=== PATIENT | female | born 1980 | race Caucasian/White ===

== ENCOUNTER → 2016-05-15 | Outpatient (CLI) | payer BC ==
[~2016-05-15] MED LIST: DOCU-94 PO; FEXO1TAB49 PO; MULT-240 PO; SERT1TAB71 PO
== END | disposition home or self-care (01) ==
LOC: C.PAPS 16:35
PROVIDERS: ATTEND Physician Assistant
DX: Z01.419 Encounter for gynecological examination (general) (routine) without abnormal findings (principal)

== ENCOUNTER → 2016-05-26 | Outpatient (CLI) | payer BC | END | disposition home or self-care (01) | LOC: C.LAB1850 09:34 | PROVIDERS: ATTEND Physician Assistant | DX: N64.52 Nipple discharge (principal) ==

== ENCOUNTER 2016-08-07 14:25 | Emergency (ER) | payer BC ==
[2016-08-07 14:31] VITALS: TEMP 36.8; Ht 175.3 cm
[2016-08-07] MEDS ORDERED: SODIUM CHLORIDE 0.9% 1000ML 1,000 ML IV STA (15:04)
[2016-08-07] MEDS ORDERED: MoRPHine SULFATE 10 MG/ML CARP/VIAL IV STA (15:04)
[2016-08-07] MEDS ORDERED: ONDANSETRON INJ 2 MG/ML 2 ML VIAL IV STA (15:04)
[2016-08-07] MEDS ORDERED: KETOROLAC TROMETHAMINE 30 MG/ML VIAL IV STA (15:04)
[2016-08-07] MEDS ORDERED: MoRPHine SULFATE 4 MG/ML 1 ML CARP\\VIAL IV STA (15:11)
[2016-08-07 15:16] LABS: BASO % 0.2 %; BASO ABS # 0.02 K/uL (0-0.2); COMPLETE YES; EOS % 1.5 %; HEMATOCRIT 38.1 % (37-47); IG% 0.1 %; LYMPH % 28.2 %; LYMPH ABS # 2.32 K/uL (1.2-3.4); MEAN CELL VOLUME 91.6 fL (80-100); MEAN CORPUSCULAR HEMOGLOBIN 31.7 pg (25-34); MEAN CORPUSCULAR HGB CONC 34.6 g/dl (32-36); MEAN PLATELET VOLUME 10.2 fL (7.4-10.4); MONO % 8.5 %; NEUT % 61.5 %; PLATELET COUNT 250 K/uL (130-400); RED BLOOD COUNT 4.16 M/uL (4.2-5.4); WHITE BLOOD COUNT 8.24 K/uL (4.8-10.8)
[2016-08-07 15:26] LABS: ALT/SGPT 50 U/L (12-78); BLOOD UREA NITROGEN 17 mg/dl (7-18); BUN/CREATININE RATIO 18.9 (10-20); CARBON DIOXIDE 28 mmol/L (21-32); CHLORIDE 103 mmol/L (98-107); CREATININE 0.89 mg/dl (0.60-1.20); GLUCOSE 83 mg/dl (70-99); SODIUM 139 mmol/L (136-145)
[2016-08-07 15:27] LABS: CALCIUM 9.4 mg/dl (8.5-10.1)
[2016-08-07 15:34] LABS: ALKALINE PHOSPHATASE 106 U/L (45-117); AST/SGOT 37 U/L (15-37)
[2016-08-07 15:38] LABS: URINE APPEARANCE CLEAR (CLEAR); URINE BILIRUBIN NEG (NEG); URINE COLOR YELLOW; URINE EPITHELIAL CELL AUTO >30 /lpf (0-5); URINE NITRITE NEG (NEG); URINE PH 6.5 (4.5-7.5); UROBILINOGEN NEG (NEG)
[2016-08-07 15:40] LABS: MANUAL MICROSCOPIC REQUIRED? NO; REVIEW REQ? NO
[2016-08-07] MEDS ORDERED: MULT-240 PO (15:44)
[2016-08-07] MEDS ORDERED: FEXO1TAB49 PO (15:44)
[2016-08-07] MEDS ORDERED: SERT1TAB71 PO (15:44)
[2016-08-07 15:52] LABS: PREG INTERNAL NEGATIVE QC NEG CLEAR BACKGROUND; PREG INTERNAL POSITIVE QC POS CONTROL LINE
--- NOTE | 2016-08-07 16:39 | DIAGNOSTIC IMAGING REPORT ---
ABDOMEN 2VIEW W/PA CHEST RTN CLINICAL HISTORY: SUDDEN ONSET LOWER ABD PAIN pain COMPARISON STUDY: None FINDINGS: No acute process the chest. Slight basilar interstitial prominence. Increased fecal load within the colon. Nonobstructive bowel pattern overall. Intrauterine device is present. IMPRESSION: 1. Increased fecal load throughout the colon consistent with a component of fecal stasis. 2. Slight bibasilar interstitial prominence. Electronically signed by: Asa Isbell M.D. 08/07/2016 4:38 PM Dictated Date/Time: 08/07/2016 4:37 PM
[2016-08-07] MEDS: MoRPHine SULFATE 4 MG/ML 1 ML CARP\\VIAL IV PRN ×2 (17:25→19:14)
--- NOTE | 2016-08-07 18:20 | DIAGNOSTIC IMAGING REPORT ---
EXAMINATION: PELVIC ULTRASOUND CLINICAL HISTORY: PELVIC PAIN, EVAL IUD PAIN COMPARISON STUDY: None FINDINGS: The uterus measured 7.6 cm. The endometrial stripe measured 3 mm. Intrauterine device within good position. The right ovary measured poorly seen due to overlying bowel content.. The left ovary measured 2.7 cm maximum dimension read normal vascular flow.. There is no ultrasonographic evidence of ovarian torsion. It should be noted that ovarian torsion can be present with normal Doppler ultrasonographic findings. There was no evidence of pathologic free pelvic fluid. IMPRESSION: 1. Intrauterine device in good position within the central uterine canal. 2. Otherwise negative study. 3. Poor visibility of the right ovary due to overlying bowel content. Electronically signed by: Asa Isbell M.D. 08/07/2016 6:19 PM Dictated Date/Time: 08/07/2016 6:17 PM
[2016-08-07] MEDS ORDERED: DOCU-94 PO (18:26)
[2016-08-07] MEDS ORDERED: OPTIRAY 320 IV PRN (19:15)
--- NOTE | 2016-08-07 19:50 | DIAGNOSTIC IMAGING REPORT ---
ABDOMEN AND PELVIS CT WITH IV CONTRAST CT DOSE: 395.13 mGy.cm HISTORY: Pain ABDOMINAL PAIN TECHNIQUE: Multiaxial CT images of the abdomen and pelvis were performed following the use of intravenous contrast. COMPARISON STUDY: 02/09/2016 FINDINGS: Lung bases are clear. Liver spleen and pancreas enhance uniformly. Kidneys enhance uniformly and are negative for hydronephrosis. The adrenal glands are unremarkable. Moderate amount of fecal material throughout colon. The appendix is normal. There is intrauterine device within the central uterine canal. The bladder is midline. No evidence for ovarian enlargement. IMPRESSION: 1. Negative study of the abdomen and pelvis. 2. Normal appendix. 3. Nonobstructive bowel pattern. Electronically signed by: Asa Isbell M.D. 08/07/2016 7:48 PM Dictated Date/Time: 08/07/2016 7:46 PM
[2016-08-07] MEDS ORDERED: NORCO 5/325MG HOME PACK PO ONE (20:00)
--- NOTE | 2016-08-07 20:01 | EMERGENCY ROOM VISIT NOTE ---
History First contact with patient: 14:54 Chief Complaint: ABDOMINAL PAIN Stated Complaint: SEVERE ABD. PAIN Nursing Triage Summary: Randy presents with a c/c of lower midline abdominal pain with a sudden onset at 1230 this date. Patient took motrin 600 mg at 1300 without relief. Austin reports some nausea, negative urinary c/c, n egative diarrhea or constipation. negative fever/chills. Pain is reported as severe and non-radiating. History of Present Illness Patient is a 36-year-old white female with IBS-C who presents the emergency department for evaluation of lower abdominal discomfort which started acutely about 2 hours ago. Patient reports that she has been feeling well and was in her usual state of health today. She does have chronic constipation which is typically alleviated by daily use of Colace. She had 2 normal bowel movements today. She also has an IUD. She does not menstruate due to the IUD. Patient reports she felt fine and had lunch out at a local restaurant. She ran a few errands and return to work around 1300. At that time she noticed some lower pelvic cramping which she states felt like menstrual cramps. She took some ibuprofen. She states the pain steadily worsened to the point where it became sharp, stabbing and she had to curl up in a position to help alleviate the pain. She presently rates her discomfort a 10/10. She states the pain comes in waves and she has nausea with the increased pain. She denies any urinary symptoms. Bowel movements have been normal for her. She denies any vaginal discharge. No history of ovarian cysts. She states she did have an episode of pain similar to this in February 2016. She states that she had some abnormal findings on CAT scan and they observed her in the hospital and the pain resolved on its own without further intervention. Review of Systems Review of systems as per HPI. All other systems reviewed were negative. 10 systems reviewed. Past Medical/Surgical History Medical Problems: (1) Anxiety (2) IBS (irritable bowel syndrome) (3) Migraine (4) Surgical Problems: (1) H/O colonoscopy with polypectomy (2) S/p egg retrieval (3) [place] teeth extracted Electronic medical records are reviewed and summarized as above/below. See Problem List. Family History Cardiac disorder MOTHER FHx: cancer GRANDMOTHER Kidney disease Kidney stones Social History Smoking Status: Never Smoker Drug Use: none Marital Status: Housing Status: lives with family Occupation Status: employed Current/Historical Medications Scheduled Docusate Sodium (Colace), 100 MG PO DAILY Fexofenadine Hcl (Whitney Allergy), 180 MG PO DAILY Multiple Vitamins W/ Minerals (Womens One Daily), 2 TABS PO DAILY Sertraline Hcl (Zoloft), 50 MG PO DAILY Allergies Coded Allergies: No Known Allergies (Unverified , 12/17/15) Physical Exam Vital Signs Date Time Temp Pulse Resp B/P (MAP) Pulse Ox O2 Delivery O2 Flow Rate FiO2 08/07/16 20:19 76 16 103/69 97 08/07/16 18:20 84 16 92/61 98 08/07/16 16:30 84 16 96/61 99 08/07/16 14:31 36.8 114 20 114/78 95 Room Air Physical Exam CONSTITUTIONAL: Patient is a markedly uncomfortable 36-year-old white female who was awake and alert and sitting upright on the gurney with her hips and knees flexed in moderate distress due to her abdominal discomfort. EYES: Pupils equal, round, reactive to light and accommodation. EOMs intact without nystagmus. Sclera are anicteric. ENT: Tympanic membranes intact, with normal landmarks. External canals are clear. Oral and nasopharynx are clear. Mucous membranes are moist, no lesions , tongue and gums appear normal. CARDIOVASCULAR: Regular rate and rhythm, with normal S1 and S2, no murmur or gallop or rub is heard. No carotid bruits auscultated. No JVD. Peripheral pulses easy to palpable. RESPIRATORY: Breath sounds equal and clear to auscultation without wheezes, rales, or rhonchi heard. Full and equal chest expansion without accessory muscle use or retractions. GI: Bowel sounds are present. Abdomen is soft, nondistended, tender to palpation in the suprapubic region. No organomegaly. No pulsatile masses. No guarding or rebound. MUSCULOSKELETAL: Full range of motion of extremities x 4 with good strength. No cyanosis, edema, joint tenderness or swelling. No deformity. INTEGUMENTARY: No lesions or rash, normal skin turgor. NEUROLOGICAL: Alert, oriented, and cooperative. Cranial nerves, sensation and strength grossly intact. Pupils round, equal, and react to light, EOMs are full. LYMPH: No lymphadenopathy. Medical Decision & Procedures ER Provider Diagnostic Interpretation: ABDOMEN 2VIEW W/PA CHEST RTN CLINICAL HISTORY: SUDDEN ONSET LOWER ABD PAIN pain COMPARISON STUDY: None FINDINGS: No acute process the chest. Slight basilar interstitial prominence. Increased fecal load within the colon. Nonobstructive bowel pattern overall. Intrauterine device is present. IMPRESSION: 1. Increased fecal load throughout the colon consistent with a component of fecal stasis. 2. Slight bibasilar interstitial prominence. EXAMINATION: PELVIC ULTRASOUND CLINICAL HISTORY: PELVIC PAIN, EVAL IUD PAIN COMPARISON STUDY: None FINDINGS: The uterus measured 7.6 cm. The endometrial stripe measured 3 mm. Intrauterine device within good position. The right ovary measured poorly seen due to overlying bowel content.. The left ovary measured 2.7 cm maximum dimension read normal vascular flow.. There is no ultrasonographic evidence of ovarian torsion. It should be noted that ovarian torsion can be present with normal Doppler ultrasonographic findings. There was no evidence of pathologic free pelvic fluid. IMPRESSION: 1. Intrauterine device in good position within the central uterine canal. 2. Otherwise negative study. 3. Poor visibility of the right ovary due to overlying bowel content. ABDOMEN AND PELVIS CT WITH IV CONTRAST CT DOSE: 395.13 mGy.cm HISTORY: Pain ABDOMINAL PAIN TECHNIQUE: Multiaxial CT images of the abdomen and pelvis were performed following the use of intravenous contrast. COMPARISON STUDY: 02/09/2016 FINDINGS: Lung bases are clear. Liver spleen and pancreas enhance uniformly. Kidneys enhance uniformly and are negative for hydronephrosis. The adrenal glands are unremarkable. Moderate amount of fecal material throughout colon. The appendix is normal. There is intrauterine device within the central uterine canal. The bladder is midline. No evidence for ovarian enlargement. IMPRESSION: 1. Negative study of the abdomen and pelvis. 2. Normal appendix. 3. Nonobstructive bowel pattern. Laboratory Results 08/07/16 14:55 Red Blood Count 4.16, Mean Corpuscular Volume 91.6, Mean Corpuscular Hemoglobin 31.7, Mean Corpuscular Hemoglobin Concent 34.6, Mean Platelet Volume 10.2, Neutrophils (%) (Auto) 61.5, Lymphocytes (%) (Auto) 28.2, Monocytes (%) (Auto) 8.5, Eosinophils (%) (Auto) 1.5, Basophils (%) (Auto) 0.2, Neutrophils # (Auto) 5.07, Lymphocytes # (Auto) 2.32, Monocytes # (Auto) 0.70, Eosinophils # (Auto) 0.12, Basophils # (Auto) 0.02 08/07/16 14:55 Test 08/07/16 14:55 08/07/16 15:20 White Blood Count 8.24 K/uL (4.8-10.8) Red Blood Count 4.16 M/uL (4.2-5.4) Hemoglobin 13.2 g/dL (12.0-16.0) Hematocrit 38.1 % (37-47) Mean Corpuscular Volume 91.6 fL (80-100) Mean Corpuscular Hemoglobin 31.7 pg (25-34) Mean Corpuscular Hemoglobin Concent 34.6 g/dl (32-36) Platelet Count 250 K/uL (130-400) Mean Platelet Volume 10.2 fL (7.4-10.4) Neutrophils (%) (Auto) 61.5 % Lymphocytes (%) (Auto) 28.2 % Monocytes (%) (Auto) 8.5 % Eosinophils (%) (Auto) 1.5 % Basophils (%) (Auto) 0.2 % Neutrophils # (Auto) 5.07 K/uL (1.4-6.5) Lymphocytes # (Auto) 2.32 K/uL (1.2-3.4) Monocytes # (Auto) 0.70 K/uL (0.11-0.59) Eosinophils # (Auto) 0.12 K/uL (0-0.5) Basophils # (Auto) 0.02 K/uL (0-0.2) RDW Standard Deviation 42.2 fL (36.4-46.3) RDW Coefficient of Variation 12.5 % (11.5-14.5) Immature Granulocyte % (Auto) 0.1 % Immature Granulocyte # (Auto) 0.01 K/uL (0.00-0.02) Anion Gap 8.0 mmol/L (3-11) Estimated GFR () 97.3 Estimated GFR (Non- 84.0 BUN/Creatinine Ratio 18.9 (10-20) Calcium Level 9.4 mg/dl (8.5-10.1) Total Bilirubin 0.2 mg/dl (0.2-1) Aspartate Amino Transf (AST/SGOT) 37 U/L (15-37) Alanine Aminotransferase (ALT/SGPT) 50 U/L (12-78) Alkaline Phosphatase 106 U/L (45-117) Total Protein 8.5 gm/dl (6.4-8.2) Albumin 4.2 gm/dl (3.4-5.0) Globulin 4.3 gm/dl (2.5-4.0) Albumin/Globulin Ratio 1.0 (0.9-2) Lipase 218 U/L (73-393) Human Chorionic Gonadotropin, Qual NEG (NEG) Urine Color YELLOW Urine Appearance CLEAR (CLEAR) Urine pH 6.5 (4.5-7.5) Urine Specific [place] 1.010 (1.000-1.030) Urine Protein NEG (NEG) Urine Glucose (UA) NEG (NEG) Urine Ketones NEG (NEG) Urine Occult Blood NEG (NEG) Urine Nitrite NEG (NEG) Urine Bilirubin NEG (NEG) Urine Urobilinogen NEG (NEG) Urine Leukocyte Esterase TRACE (NEG) Urine WBC (Auto) 1-5 /hpf (0-5) Urine RBC (Auto) 0-4 /hpf (0-4) Urine Hyaline Casts (Auto) 1-5 /lpf (0-5) Urine Epithelial Cells (Auto) >30 /lpf (0-5) Urine Bacteria (Auto) NEG (NEG) Medications Administered Medications (Trade) Dose Ordered Sig/[place]ton Route Start Time Stop Time Status Last Admin Dose Admin Ketorolac Tromethamine (Toradol Inj) 30 mg NOW STAT IV 08/07/16 15:04 08/07/16 15:07 DC 08/07/16 15:17 30 MG Morphine Sulfate (MoRPHine SULFATE INJ) 6 mg NOW STAT IV 08/07/16 15:04 08/07/16 15:07 DC 08/07/16 15:18 6 MG Ondansetron HCl (Zofran Inj) 4 mg NOW STAT IV 08/07/16 15:04 08/07/16 15:07 DC 08/07/16 15:17 4 MG Sodium Chloride 1,000 ml @ 999 mls/hr Q1H1M STAT IV 08/07/16 15:04 08/07/16 16:04 DC 08/07/16 15:08 999 MLS/HR Morphine Sulfate (MoRPHine SULFATE INJ) 4 mg Q1H PRN IV 08/07/16 15:30 08/07/16 20:35 DC 08/07/16 19:14 4 MG Acetaminophen/ Hydrocodone Bitart ([place] 5/325mg Home Pack) 1 homepack UD ONCE PO 08/07/16 20:00 08/07/16 20:01 DC 08/07/16 20:10 1 HOMEPACK ED Course The patient was seen and evaluated as above. Her old records were reviewed, including her ED visit last February when she had similar symptoms. IV lock was initiated and she was hydrated with normal saline solution. She was medicated with Zofran 4 mg, morphine 6 mg and Toradol 30 mg IM. CBC with differential, CMP, lipase, urinalysis and serum hCG were obtained. The patient did require several additional doses of morphine 4 mg IV every hour as needed for pain. Acute abdominal series was obtained and noted increased fecal load throughout the colon consistent with fecal stasis. No evidence for free air, perforation or obstruction. Laboratory studies demonstrated a normal white count at 8200, no left shift or bandemia. H&H is normal. Electrolytes, renal functions, liver function and pancreatic enzymes are normal. Serum hCG is negative. Urinalysis was essentially unremarkable, with no indicators for infection. Given the patient's discomfort and her history of an IUD, pelvic ultrasound was obtained and was essentially unremarkable. The intrauterine device was in good position. There is no obvious adnexal lesions or evidence for torsion. The patient was reassessed and made aware of the results of her workup. She continued to complain of discomfort and did request something additional for pain. Given her persistent pain despite negative x-ray and ultrasound, and her history of having an abnormal abdominal CT 6 months ago, I did elect to perform an additional CT scan today. CT did not demonstrate any acute infectious or inflammatory findings. Moderate fecal material was noted throughout the colon. Appendix was visualized and was normal. Bowel pattern was nonobstructive. All laboratory and diagnostic imaging findings were reviewed with the patient and her significant other. Symptoms could be related to her constipation, including gas or colonic distention. Differential diagnoses also entertained included UTI, pyelonephritis, renal colic, ovarian cyst, ovarian torsion, , ectopic , IUD malfunction, PID, tubo-ovarian abscess, bowel obstruction, perforation, among others. Conservative care measures were discussed. Patient was prescribed a home pack [place] homepack to use as needed for severe pain, but advised that this could worsen her constipation. She will increase her Colace to 2 capsules at bedtime. She was advised to have close follow-up with her primary care provider for further care and management. She is discharged home in good condition. Medical Decision See ED course. [place] Drug Monitoring Program Search Results: patient reviewed within database, no issues identified Impression Primary Impression: Pelvic pain Departure Information Referrals Deandre Reyes M.D.([facility]) (PCP) Patient Instructions [facility] Additional Instructions DO NOT drive, drink alcohol, operate machinery, or perform dangerous activities today. You were given medications in the ER that can affect your ability to safely function or operate a vehicle. Hydrocodone/Acetaminophen ([place]) 5/325 mg: Take 1-2 pills every four hours for breakthrough pain. Avoid alcohol, operating machinery or dangerous equipment, working on ladders or roofs, DRIVING, or situations where being under the influence may be dangerous. It is recommended to use an [id number] stool softener such as Colace, 100mg twice daily while taking this medication to avoid constipation. Ibuprofen(Motrin, Advil) may be used for fever or pain. Use 600mg every six hours as needed. Take with food. Avoid using more than 2400mg in a 24 hour period. Do not use 2400mg per day for more than three consecutive days without physician direction. Prolonged inappropriate use can lead to stomach upset or ulcers. This is available over the counter and typically comes in 200mg tablets. (AND/OR) Acetaminophen(Tylenol) may be used for fever or pain. Use 1000mg every eight hours as needed. Avoid using more than 3000mg in a 24 hour period. This is available over the counter. Rest and drink plenty of fluids as tolerated. Slow sips of water or sports drinks are recommended instead of large amounts all at once. Continue current medications. Once your stomach is settled start with a clear liquid diet (jello, soup broth, etc.) and then advance as tolerated. You should avoid full, heavy meals for about 24 hrs from the time your symptoms resolved. Return to the ER immediately for worsening or persistent abdominal pain, vomiting, fevers, chest pains, difficulty breathing, black or bloody stools, worsening of your condition, or as needed. Follow up with your primary physician in 1-2 days for a recheck of your current condition.
[2016-08-07 20:19] VITALS: BP 103/69; PULSE 76; O2SAT 97
== END 2016-08-07 20:20 | disposition home or self-care (01) ==
LOC: C.EDB 14:27
DX: R10.2 Pelvic and perineal pain (principal); F41.9 Anxiety disorder, unspecified; K58.9 Irritable bowel syndrome, unspecified; Z98.890 Other specified postprocedural states; Z79.899 Other long term (current) drug therapy; Z82.49 Family history of ischemic heart disease and other diseases of the circulatory system; Z80.9 Family history of malignant neoplasm, unspecified; Z84.1 Family history of disorders of kidney and ureter

== ENCOUNTER 2018-09-19 02:04 | Inpatient (IN) ==
--- OUTSIDE RECORDS SUMMARY | 2018-09-19 02:08 | External Medical Summary | Continuity of Care Document ---
:1980 Author Name Glynn Serrano, Provider Address Unavailable Unavailable , Care Team Providers Name Role Phone Unavailable Unavailable Unavailable Rylie Serrano, Vangie Gee Unavailable Kristy [email or web address] Sagar Reyes Unavailable Unavailable Unavailable Unavailable Unavailable Problems Encounter for routine gynecological examination (V72.31) (Z0 1.419) Vaginal odor (625.8) (N89.8) Nipple discharge (611.79) (N64.52) Stress incontinence in female (625.6) (N39.3) Non-smoker (V49.89) (Z78.9) Abnormal uterine bleeding (AUB) (626.9) (N93.9) Allergies and Adverse Reactions No Known Drug Allergies (Allergy) Medications metroNIDAZOLE 0.75 % Vaginal Gel; Insert 1 full applicator vaginally at bedtime for 5 days Zach Youngblood Start: 04-Jan-2018 Quantity: 1 70 GM Tube Refills: 0 Linzess CAPS , M.DConor Refills: 0 Mirena (52 MG) IUD , M.DConor Refills: 0 Multiple Vitamin TABS , M.DConor Refills: 0 Zoloft TABS , M.DConor Refills: 0 Procedures History of Oral Surgery Tooth Extraction Status: Completed Immunizations Tdap (Adacel) On: 13-Oct-2015 11:58 Lot #: [id number], [employer] Fluzone Quadrivalent 0.5 ML Intramuscular Suspension On: Nov-2015 11:38 Lot #: [id number], [employer]FI PA[employer]UR Interventions Medication ChangesmetroNIDAZOLE 0.75 % Vaginal Gel - Start Plan of Treatment Planned Observations Planned Goals not documented Results No Known Results Results not documented Encounters Appointment; Vangie Youngblood M.D. 01-Jan-2018 9:20 Encounter Diagnosis: Problem not documented Appointment; OBGYN [facility], Ultrasound 31-Oct-2017 11:00 Encounter Diagnosis: Problem not documented Appointment; Isabella Guerrero M.D. 29-Oct-2017 10:00 Encounter Diagnosis: Problem not documented
[2018-09-19] MEDS ORDERED: ONDANSETRON INJ 2 MG/ML 2 ML VIAL IV STA (02:30)
[2018-09-19] MEDS ORDERED: SODIUM CHLORIDE 0.9% 1000ML 1,000 ML IV SCH (02:30)
[2018-09-19] MEDS ORDERED: MoRPHine SULFATE 4 MG/ML 1 ML CARP\\VIAL IV STA (02:30)
[2018-09-19] MEDS ORDERED: GI COCKTAIL ED USE PO ONE (02:30)
[2018-09-19 02:55] LABS: Hematocrit (blood only) 35.7 % (37-47); Hemoglobin 12.3 g/dL (12.0-16.0); Mean Corpuscular Hgb Conc 34.5 g/dL (32-36); Mean Corpuscular Volume 88.1 fL (80-100); Mean Platelet Volume 9.6 fL (7.4-10.4); Platelet Count 321 K/uL (130-400); RDW Coefficient of Variation 12.8 % (11.5-14.5); RDW Standard Deviation 41.4 fL (36.4-46.3); Red Blood Count 4.05 M/uL (4.2-5.4); White Blood Count 12.02 K/uL (4.8-10.8)
[2018-09-19 03:13] LABS: Basophils # (auto) 0.06 K/uL (0-0.2); Basophils % (auto) 0.5 %; Eosinophils # (auto) 0.13 K/uL (0-0.5); Eosinophils % (auto) 1.1 %; Immature Granulocytes # (auto) 0.03 K/uL (0.00-0.02); Immature Granulocytes % (auto) 0.2 %; Lymphocytes # (auto) 4.03 K/uL (1.2-3.4); Lymphocytes % (auto) 33.5 %; Monocytes # (auto) 0.87 K/uL (0.11-0.59); Monocytes % (auto) 7.2 %; Neutrophils % (auto) 57.5 %
[2018-09-19 03:14] LABS: Alanine Aminotransferase 22 U/L (12-78); Albumin Level 3.8 gm/dl (3.4-5.0); Aspartate Aminotransferase 13 U/L (15-37); Blood Urea Nitrogen 11 mg/dl (7-18); Calcium 8.8 mg/dl (8.5-10.1); Carbon Dioxide 25 mmol/L (21-32); Chloride 106 mmol/L (98-107); Creatinine Clr Calc Pharmacy 103.7 ml/min; Est GFR (African American) 94.7; Est GFR (Non-African American) 81.7; Glucose 105 mg/dl (70-99); Potassium 2.8 mmol/L (3.5-5.1); Sodium 140 mmol/L (136-145)
[2018-09-19 03:25] LABS: Albumin Globulin Ratio 0.9 (0.9-2); Alkaline Phosphatase 117 U/L (45-117); Bilirubin,Total 0.2 mg/dl (0.2-1); Globulin 4.2 gm/dl (2.5-4.0); Troponin I < 0.015 ng/ml (0-0.045)
[2018-09-19 04:07] LABS: Appearance Urine Turbid (Clear); Bacteria Urine Automated Negative (Negative); Bilirubin Urine Negative (Negative); Blood Urine Negative (Negative); Color Urine Yellow; Epithelial Cell Urine Auto >30 /lpf (0-5); Glucose Urine UA Negative (Negative); Ketones Urine Negative (Negative); Leukocyte Esterase Urine Negative (Negative); Nitrite Urine Negative (Negative); Protein Urine Negative (Negative); RBC Urine Automated 0-4 /hpf (0-4); Specific Gravity Urine 1.021 (1.000-1.030); Urobilinogen Urine Negative (Negative)
--- NOTE | 2018-09-19 05:37 | Surgery Consultation ---
Date of Consultation September 19, 2018 Assessment & Plan (1) Acute cholecystitis: pt is a 38 year-old female who presents to Er with 5 hours history acute abdominal pain, U/S study- acute cholecystitis, cholelithiasis, Plan, I recommend to admit to hospital then to do laparoscopic cholecystectomy, possible open or cholangiogram today, D/W benefits, risks and alternatives of the surgery, the risks - infection, bleeding, injury CBD, bowel, biliary leak, may need ERCP, , pt understood, she agrees with the surgery, I answered all questions, History of Present Illness History of Present Illness CC: abdominal pain, HPI: pt is a 38 year-old female who presents to ER with 5 hours history acute abdominal pain, with nausea, the pain is located at epigastric area, pt had Pizza at dinner, pt denies vomiting, no fever, no back pain, no diarrhea, pt's mother and her sister had gallstone, pt is health in the past, pt had U/S study at Er Dx acute cholecystitis with cholelithiasis. Allergies Allergy/AdvReac Type Severity Reaction Status Date / Time No Known Allergies Allergy Unverified 09/19/18 02:42 Home Medications Home Medications Medication Instructions Recorded Confirmed Type docusate sodium [Colace] 100 - 200 mg PO HS 09/19/18 09/19/18 History multivitamin with minerals 2 tab PO DAILY 09/19/18 09/19/18 History sertraline 100 mg PO DAILY 09/19/18 09/19/18 History Patient History Medical History Acute cholecystitis (Acute) Social History Feels Safe at Home: Yes Smoking Status: Never smoker Review of Systems Constitutional: as per Subjective / HPI Ear, Nose, Mouth, Throat: as per Subjective / HPI Respiratory: as per Subjective / HPI Cardiovascular: as per Subjective / HPI Gastrointestinal: as per Subjective / HPI Genitourinary: as per Subjective / HPI Neurologic: as per Subjective / HPI Psychiatric: Anxiety Endocrine: as per Subjective / HPI Hematologic / Lymphatic: as per Subjective / HPI Physical Exam Constitutional: WD/WN, vitals as above well developed and well nourished ENMT: external ear and nose normal, oropharynx normal Neck: trachea midline, no thyromegaly Respiratory: normal respiratory effort, lungs clear to auscultation Cardiovascular: RRR, no murmur, no edema Rate/Rhythm: regular rate and regular rhythm Heart Sounds: normal S1 and normal S2 Gastrointestinal (Abdomen): Percussion/Palpation: + abdomen tender and abdomen soft tenderness at epigastric area, no rebound pain, morphy's sign +, BS + Neurologic: patellar DTR's 2+ bilat, sensation intact Psychiatric: Orientation: alert and oriented x 3 Lymphatic: no cervical or axillary lymphadenopathy Results & Data Vital Signs (Past 12 Hours) Vital Signs Temp Pulse Pulse Resp BP BP Pulse Ox 09/19/18 03:53 98 09/19/18 03:52 87 20 142/82 H 98 09/19/18 02:08 36.3 C L 76 20 131/86 100 Laboratory Results Abnormal lab results 09/19/18 09/19/18 09/19/18 Range/Units 02:32 02:32 03:55 WBC 12.02 H (4.8-10.8) K/uL RBC 4.05 L (4.2-5.4) M/uL Hct 35.7 L (37-47) % Immature Gran # (Auto) 0.03 H (0.00-0.02) K/uL Neut # (Auto) 6.90 H (1.4-6.5) K/uL Lymph # (Auto) 4.03 H (1.2-3.4) K/uL [place] # (Auto) 0.87 H (0.11-0.59) K/uL Potassium 2.8 L (3.5-5.1) mmol/L Glucose 105 H (70-99) mg/dl AST 13 L (15-37) U/L Globulin 4.2 H (2.5-4.0) gm/dl Urine Appearance Turbid A (Clear) Urine pH 8.0 H (4.5-7.5) U Epithel Cells (Auto) >30 H (0-5) /lpf Diagnostic Findings U/S study- multiple gallstone with gallbladder wall thickening edema, Dx acute cholecystitis, cholelithiasis
[2018-09-19] MEDS ORDERED: HYDROmorphone INJ 0.5 MG/0.5 ML SYR IV PRN (05:48)
[2018-09-19] MEDS ORDERED: ONDANSETRON INJ 2 MG/ML 2 ML VIAL IV PRN ×2 (05:48→08:41)
[2018-09-19] MEDS ORDERED: CEFAZOLIN 2000MG 2,000 MG/15 ML SYR IV ONE (06:00)
[2018-09-19] MEDS ORDERED: CEFAZOLIN 1000MG 1,000 MG/7.5 ML SYR IV SCH ×2 (06:00→16:00)
--- NOTE | 2018-09-19 06:44 | Ultrasound Report ---
US gallbladder CLINICAL HISTORY: Epigastric abdominal pain. COMPARISON STUDY: CT of the abdomen and pelvis August 07, 2016. FINDINGS: Liver is sonographically normal. There is no biliary ductal dilatation. The common bile tata t measures 5 mm in caliber. The pancreas is obscured by overlying bowel gas. There are stones and slu dge within the gallbladder. There is moderate gallbladder wall thickening. There is edema within the gallbladder wall. The wall measures 6 mm in thickness. Sonographic Stewart sign could not be assessed for this patient. The gallbladder is distended. There is no right hydronephrosis. Mild right renal co rtical thinning is noted. IMPRESSION: 1. Cholelithiasis, gallbladder distention and moderate gallbladder wall thickening. These findings ar e suggestive of acute cholecystitis. 2. No biliary ductal dilatation. 3. Pancreas largely obscured on this exam. Electronically signed by: Anjel Vines M.D. 09/19/2018 6:43 AM
[2018-09-19 06:47] LABS: Partial Thromboplastin Time 27.7 Seconds (21.0-31.0); Prothrombin Time 9.9 Seconds (9.0-12.0)
[2018-09-19] MEDS ORDERED: DEXAMETHASONE SOD INJ 4 MG/ML VIAL ONE (06:47)
[2018-09-19] MEDS ORDERED: PROPOFOL IV EMULSION 10 MG/ML 20 ML VIAL IV ONE (06:47)
[2018-09-19] MEDS ORDERED: LIDOCAINE HCL 2% 2 ML VIAL/AMP(20MG/ML) INFIL ONE (06:47)
[2018-09-19] MEDS ORDERED: NEOSTIGMINE METHYLSULFATE 5 MG/5 ML SYR ONE (06:47)
[2018-09-19] MEDS ORDERED: GLYCOPYRROLATE 0.2 MG/ML VIAL ONE (06:47)
[2018-09-19] MEDS ORDERED: ONDANSETRON INJ 2 MG/ML 2 ML VIAL ONE ×2 (06:47→08:59)
[2018-09-19] MEDS ORDERED: MIDAZOLAM HCL 1 MG/ML 2ML VIAL ONE (06:47)
[2018-09-19] MEDS ORDERED: fentaNYL citrate 100 MCG/2 ML VIAL ONE (06:47)
[2018-09-19 06:52] LABS: D Dimer 800 ug/L FEU (0-500)
--- NOTE | 2018-09-19 07:00 | History & Physical Bridge Note ---
Date of Service September 19, 2018 History & Physical Bridge Note I have examined the patient, reviewed the History & Physical and in the interval since the performance of the History & Physical I have noted the following changes of clinical significance: no changes noted
--- NOTE | 2018-09-19 07:00 | Anesthesiology Consultation ---
Date of Service September 19, 2018 Acute cholecystitis Hypokalemia Assessment & Plan (1) Encounter for pre-operative examination: Chart Review Chart Review: Acceptable Risk for Surgery and Patient NOT seen in Pre Admission Testing Consults Requested none ASA ASA2 Proposed Anesthesia Anesthesia Type: General Risk / Benefits Reviewed With: PT / POA / Parent / Guardian, Accepts Plan and Informed Consent Obtained History Surgery Operation Date: 09/19/18 07:30 Proposed Procedures p Laparoscopic Cholecystectomy - Macho Canchola MD Height/Weight Height: 5 ft 10 in Weight: 89.2 kg Allergies Allergy/AdvReac Type Severity Reaction Status Date / Time No Known Allergies Allergy Unverified 09/19/18 02:42 Medications Home Medications Medication Instructions Recorded Confirmed Last Taken docusate sodium [Colace] 100 - 200 mg PO HS 09/19/18 09/19/18 09/18/18 200mg multivitamin with minerals 2 tab PO DAILY 09/19/18 09/19/18 09/18/18 sertraline 100 mg PO DAILY 09/19/18 09/19/18 09/18/18 NPO Date Last Intake of Fluids: 09/18/18 Time Last Intake of Fluids: 22:30 Date Last Intake of Solids: 09/19/18 Time Last Intake of Solids: 18:00 Past Medical History Medical History Acute cholecystitis (Acute) Exercise / Class Metabolic Activity II 4-5 Yardwork/Stairs/Walk up hill Past Anesthesia History No Hx of Anesthesia Complications and No Family Hx of Anesthesia Complications History of PONV No Hx of PONV and No Hx of Motion Sickness Social History Smoking Status: Never smoker Physical Exam Vital Signs Last Vital Signs Temp 36.3 C L 09/19/18 02:08 Pulse 77 09/19/18 06:39 Resp 16 09/19/18 06:39 BP 118/77 09/19/18 06:39 Pulse Ox 98 09/19/18 06:39 ENMT Mouth: no dentition abnormality Thyromental Distance: < 3.5 Finger Breadths Mallampati Class: III Neck normal visual inspection Respiratory normal respiratory effort Auscultation: lungs clear to auscultation bilaterally Cardiovascular Rate/Rhythm: regular rate and regular rhythm Psychiatric Orientation: alert Testing Laboratory Results 09/19/18 02:32 09/19/18 02:32 PT 9.9 Seconds (9.0-12.0) 09/19/18 05:11 INR 1.0 (0.9-1.1) 09/19/18 05:11 APTT 27.7 Seconds (21.0-31.0) 09/19/18 05:11 Urine Color Yellow 09/19/18 03:55 Urine Appearance Turbid (Clear) A 09/19/18 03:55 Urine pH 8.0 (4.5-7.5) H 09/19/18 03:55 Ur Specific [place] 1.021 (1.000-1.030) 09/19/18 03:55 Urine Protein Negative (Negative) 09/19/18 03:55 Urine Glucose (UA) Negative (Negative) 09/19/18 03:55 Urine Ketones Negative (Negative) 09/19/18 03:55 Urine Nitrite Negative (Negative) 09/19/18 03:55 Ur Leukocyte Esterase Negative (Negative) 09/19/18 03:55 Urine WBC (Auto) 1-5 /hpf (0-5) 09/19/18 03:55 Urine RBC (Auto) 0-4 /hpf (0-4) 09/19/18 03:55 U Hyaline Cast (Auto) 1-5 /lpf (0-5) 09/19/18 03:55 U Epithel Cells (Auto) >30 /lpf (0-5) H 09/19/18 03:55 Urine Bacteria (Auto) Negative (Negative) 09/19/18 03:55 09/19/18 03:55 POC Ur Test NEG Electrocardiogram Date: 09/19/18 Findings: + NSR @
[2018-09-19] MEDS ORDERED: LIDOCAINE HCL 1% 20 ML VIAL ONE (07:09)
[2018-09-19] MEDS ORDERED: BUPIVACAINE 0.5 % 5 MG/1 ML MPF 30ML VIAL ONE (07:09)
[2018-09-19] MEDS ORDERED: BACITRACIN OINT 15 GM TUBE ONE (07:09)
--- NOTE | 2018-09-19 07:57 | Anesthesiology Progress Note ---
Date of Service September 19, 2018 Subjective After induction, easy mask was noted. Direct laryngoscopy performed with grade 3 view. Immediately changed techniques to glidescope. Glidescope was able to easily visualize glotis, however very small mouth made passage of tube very difficult while glidescope blade in place. At this point, fiberoptic guidance was added to glidescope with easy passage of endotracheal tube. There was no damage to the teeth or oropharynx. Physical Exam Vital Signs: Last Vital Signs Temp 36.3 C L 09/19/18 02:08 Pulse 77 09/19/18 06:39 Resp 16 09/19/18 06:39 BP 118/77 09/19/18 06:39 Pulse Ox 98 09/19/18 06:39
[2018-09-19] MEDS ORDERED: CEFAZOLIN 250 MG/ML 1 GM VIAL ONE (08:06)
--- NOTE | 2018-09-19 08:31 | Post Operative Brief Note ---
Immediate Post Op Note v1 Date of Surgery September 19, 2018 Pre & Post Diagnosis Operation Date: 09/19/18 07:30 Pre-Op Diagnosis: acute cholecystitis, cholelithiasis Post-Op Diagnosis: acute cholecystitis, cholelithiasis Procedure Operation Date: 09/19/18 07:30 Actual Procedures p Laparoscopic Cholecystectomy(Not Applicable) - Macho Canchola MD Surgeon Macho Canchola MD Edi Coordinator FIDEL Clark Estimated Blood Loss 10 Findings Consistent with Post-Op Diagnosis significant inflammation on gallbladder wall, Fluids 900ml Specimens gallbladder Anesthesia Type General Complications none Disposition Accompanied Patient To Recovery: Yes Disposition: Recovery Room Overlapping Procedure I was immediately available: during the entire case.
[2018-09-19] MEDS ORDERED: fentaNYL citrate 100 MCG/2 ML VIAL IV PRN (08:41)
[2018-09-19] MEDS ORDERED: PROMETHAZINE HCL 6.25 MG in SODIUM CHLORIDE 0.9% 50 ML IV PRN (08:41)
[2018-09-19] MEDS ORDERED: HYDROmorphone INJ 2 MG/ML SYR/VIAL IV PRN (08:41)
[2018-09-19] MEDS ORDERED: ePHEDrine sulfate 50 MG/ML AMP IV PRN (08:41)
[2018-09-19] MEDS ORDERED: ATROPINE SULFATE 0.1 MG/ML 10ML SYR IV PRN (08:41)
[2018-09-19] MEDS ORDERED: MULTIVITAMIN TAB PO SCH ×2 (09:53→21:00)
[2018-09-19] MEDS ORDERED: SERTRALINE HCL 100 MG TABLET PO SCH ×2 (09:53→21:00)
[2018-09-19] MEDS: LACTATED RINGER'S 1,000 ML IV SCH ×2 (10:15→10:22)
--- NOTE | 2018-09-19 10:28 | Anesthesiology Progress Note ---
Date of Service September 19, 2018 Anesthesia Post Procedure Vital Signs Vital Signs: Temp Pulse Pulse Pulse Resp BP BP 09/19/18 10:17 36.5 C 72 18 112/77 09/19/18 10:04 36.5 C 70 18 115/62 09/19/18 09:20 36.4 C L 78 16 120/84 09/19/18 09:10 77 16 128/80 09/19/18 09:00 88 16 127/80 09/19/18 08:51 36.2 C L 99 H 16 126/78 09/19/18 06:48 36.8 C 89 20 110/73 09/19/18 06:39 77 16 118/77 09/19/18 05:15 83 16 119/90 09/19/18 03:53 09/19/18 03:52 87 20 142/82 H 09/19/18 02:08 36.3 C L 76 20 131/86 Pulse Ox 09/19/18 10:17 96 09/19/18 10:04 98 09/19/18 09:20 98 09/19/18 09:10 98 09/19/18 09:00 99 09/19/18 08:51 99 09/19/18 06:48 96 09/19/18 06:39 98 09/19/18 05:15 96 09/19/18 03:53 98 09/19/18 03:52 98 09/19/18 02:08 100 Pain Intensity Bilateral Anterior Chest: Pain Intensity: 2 Transfer of Care Handoff Completed per policy Notes Mental Status: alert / awake / arousable Patient Amnestic to Procedure: Yes Nausea / Vomiting: adequately controlled Pain: adequately controlled Airway Patency, RR, SpO2: stable & adequate BP & HR: stable & adequate Hydration State: stable & adequate Anesthetic Complications: no major complications apparent
[2018-09-19] MEDS ORDERED: OXYCODONE/ACETAMINOPHEN 5mg/325mg TAB PO PRN (11:02)
[2018-09-19] MEDS ORDERED: ACETAMINOPHEN 325 MG TAB PO PRN (11:02)
[2018-09-19] MEDS ORDERED: Nursing to Pharmacy Communication ONE (11:51)
--- NOTE | 2018-09-19 13:18 | Operative Report ---
DATE OF OPERATION: 09/19/2018 PREOPERATIVE DIAGNOSIS: Acute cholecystitis, cholelithiasis. POSTOPERATIVE DIAGNOSIS: Acute cholecystitis, cholelithiasis. OPERATION: Laparoscopic cholecystectomy. SURGEON: Macho Canchola MD RULING MACHINE OPERATOR: Monik Cade PA-C. ANESTHESIA: General. ESTIMATED BLOOD LOSS: About 10 mL. FINDINGS: Significant inflammation on the gallbladder wall, acute cholecystitis. COMPLICATIONS: None. INDICATIONS FOR THE PROCEDURE: This is a 38-year-old female who presented to the ED with acute abdominal pain. The patient had ultrasound diagnosis of acute cholecystitis with cholelithiasis and the patient will be required to do laparoscopic cholecystectomy, possible open, possible cholangiogram. I did talk to the patient about the benefit and risk, alternate procedure. I indicated the risks may include but not limited such as bleeding, infection, injury to common bile duct, injury to bowel, may need ERCP, bile leak, even . The patient understands. She signed informed consent and I answered all questions. DETAILS OF PROCEDURE: We brought the patient to the OR, put the patient in the supine position. The patient received SCD on bilateral legs to prevent DVT. Also, the patient received 2 grams Ancef IV for prophylactic antibiotic. The patient received general anesthesia without difficulty. The abdomen was prepped and draped in routine sterile fashion. After time out, I injected local anesthesia just above umbilical by using 1% lidocaine mixed with 0.5% Marcaine. Then, I made a small incision just above umbilicus, opened fascia and opened peritoneum under direct vision, put a Phyllis trocar in, connected to CO2 to create pneumoperitoneum. Flow rate at 6 liter per minute. Pressure not more than 14 mmHg. Once we got a nice pneumoperitoneum, we put the camera in, looked around the abdomen showed normal finding on the liver. However, the gallbladder is showing significant inflammation on the gallbladder wall, gallbladder wall thickening, edema, confirmed diagnosis of acute cholecystitis. Then, we put other three 5 mm trocars on the right upper quadrant. Once all trocars in, we used the grasper to hold the base of the gallbladder, put a direction to the diaphragm and also the gallbladder shows significant distention. I used a large needle to decompress the gallbladder first. Then, we used another grasper to hold the pouch of gallbladder, put latter to explore the triangle of Calot. The cystic duct was identified and mobilized. Then, I put two 5 mm clips on the proximal cystic duct, one on the distal cystic duct. Then, I used a scissor transection of the cystic duct. Rechecked, no bile leak. No active bleeding. Then, the cystic artery was identified and mobilized. I put two 5 mm clip on the proximal cystic artery and on the distal cystic duct artery. Then, I used a scissor for transection of cystic artery. Rechecked, no active bleeding. Then, we used the Bovie to take down the gallbladder from the liver bed. Rechecked, no active bleeding, no bile leak from the liver bed. Then, we removed the gallbladder through the catch bag. Then, we reinserted Phyllis trocar in, connected to CO2 to create pneumoperitoneum, again looked around the abdomen shows no bile leak, no active bleeding from the liver bed. Then, we removed all trocar under direct vision. No active bleeding from the trocar sites. Pneumoperitoneum was released. Then, I closed the umbilical incision, fascial layer by using #1 Vicryl [id number] x2, closed subcutaneous layer by using 2-0 Vicryl interruptedly and closed skin by using 4-0 Vicryl continuous running, closed another three 5 mm trocar site skin only by using 4-0 Vicryl. Then, we put the dressing on. The patient tolerated the procedure well. All the instrument, needle, sponge count correct x2 at the end of case. The patient transferred to recovery room in stable condition. The specimen sent to pathology. I attest to the content of the Intraoperative Record and any orders documented therein. Any exceptions are noted below. KAREEM
--- NOTE | 2018-09-19 15:22 | Surgery Progress Note ---
Date of Service September 19, 2018 Assessment & Plan (1) Acute cholecystitis: POD # 0 s/p laparoscopic cholecystectomy -vitals stable - post op pain minimal and controlled with percocet - tolerating diet, no n/v - adequate urine output Plan: Discharge home discharge instructions reviewed Rx for Percocet prn pain f/u surgical office in 1-2 weeks Subjective feeling good tolerated lunch, no n/v minimal post op pain controlled with percocet preop pain resolved urinating without difficulty Physical Exam Constitutional: WD/WN, vitals as above no acute distress and not ill appearing Respiratory: normal respiratory effort; no respiratory distress Gastrointestinal (Abdomen): Inspection/Auscultation: abdomen normal to inspection; abdomen not distended Percussion/Palpation: + abdomen tender (mild at incision sites) and abdomen soft; no guarding and abdomen not rigid Skin: no rashes, warm and dry + incision (covered with dressings with spotting) Psychiatric: A+Ox3, euthymic affect Results & Data Vital Signs (Past 12 Hours) Vital Signs Temp Pulse Pulse Pulse Resp BP BP 09/19/18 15:02 36.5 C 84 18 122/71 09/19/18 13:03 36.6 C 75 16 120/73 09/19/18 12:03 36.0 C L 95 H 16 114/74 09/19/18 11:00 36.4 C L 88 16 117/80 09/19/18 10:31 36.4 C L 83 18 121/85 09/19/18 10:17 36.5 C 72 18 112/77 09/19/18 10:04 36.5 C 70 18 115/62 09/19/18 09:20 36.4 C L 78 16 120/84 09/19/18 09:10 77 16 128/80 09/19/18 09:00 88 16 127/80 09/19/18 08:51 36.2 C L 99 H 16 126/78 09/19/18 06:48 36.8 C 89 20 110/73 09/19/18 06:39 77 16 118/77 09/19/18 05:15 83 16 119/90 09/19/18 03:53 09/19/18 03:52 87 20 142/82 H Pulse Ox 09/19/18 15:02 93 09/19/18 13:03 98 09/19/18 12:03 95 09/19/18 11:00 95 09/19/18 10:31 98 09/19/18 10:17 96 09/19/18 10:04 98 09/19/18 09:20 98 09/19/18 09:10 98 09/19/18 09:00 99 09/19/18 08:51 99 09/19/18 06:48 96 09/19/18 06:39 98 09/19/18 05:15 96 09/19/18 03:53 98 09/19/18 03:52 98
[2018-09-19] MEDS ORDERED: DOCUSATE SODIUM 100 MG CAP PO SCH (21:00)
--- NOTE | 2018-09-19 23:50 | Emergency Department Note ---
History of Present Illness General Chief complaint: Cardiac Assessment Stated complaint: CHEST PAIN Time Seen by Provider: 09/19/18 02:10 History of Present Illness Maximum Pain Intensity: 2 This is a 38-year-old female presenting to the emergency department for evaluation of epigastric abdominal pain and chest discomfort. The patient states that her symptoms began approximately 2 hours prior to arrival around 12 midnight. She states that the pain is like a tightness that will radiate into her back. She rates her current discomfort a 6/10. She is nauseated without vomiting. No fevers or chills. The patient does not have a history of cardiopulmonary disease. She does state there is a strong family history of gallbladder disease. The patient had pizza for dinner around 6 PM, and this was her last meal. The patient has not taken anything [id number] for pain control. She is not having any lower abdominal discomfort, and she denies chance of . She is not on blood thinners. Home Medications Home Medications Medication Instructions Recorded Confirmed Type docusate sodium [Colace] 100 - 200 mg PO HS 09/19/18 09/19/18 History multivitamin with minerals 2 tab PO DAILY 09/19/18 09/19/18 History oxycodone-acetaminophen 1 tab PO Q4H PRN #18 tab 09/19/18 Rx sertraline 100 mg PO DAILY 09/19/18 09/19/18 History Allergies Allergy/AdvReac Type Severity Reaction Status Date / Time No Known Allergies Allergy Unverified 09/19/18 02:42 Past Med/Surg History Medical History Acute cholecystitis (Acute) Social History Preferred Language: Greenlandic Communication Ability: Effective Beliefs That Will Affect Care: None Current Living Situation: Spouse Other Information That Helps Us Care for You: No Feels Safe at Home: Yes Safety Concerns: Feels Safe At This Time Smoking Status: Never smoker Hx Alcohol Use: No Hx Substance Use: No Review of Systems A total of 10 systems reviewed and were otherwise negative Physical Exam Vital Signs Vital Signs - 24 hr 09/19/18 03:52 09/19/18 03:53 09/19/18 05:15 Pulse Rate Pulse Rate [Apical] 87 83 Pulse Rhythm [Apical] Regular Regular Pulse Strength [Apical] Normal Normal Respiratory Rate 20 16 Respiratory Effort / Characteristics Non-Labored Respiratory Depth Normal Normal Respiratory Pattern Regular Regular Blood Pressure Blood Pressure [Right Arm] 142/82 H 119/90 Blood Pressure Mean [Right Arm] 102 99 Blood Pressure Position [Right Arm] Lying Pulse Oximetry 98 98 96 Oxygen Delivery Method Room Air Room Air Room Air 09/19/18 06:39 Pulse Rate 77 Pulse Rate [Apical] Pulse Rhythm [Apical] Pulse Strength [Apical] Respiratory Rate 16 Respiratory Effort / Characteristics Respiratory Depth Respiratory Pattern Blood Pressure 118/77 Blood Pressure [Right Arm] Blood Pressure Mean [Right Arm] Blood Pressure Position [Right Arm] Pulse Oximetry 98 Oxygen Delivery Method Room Air VITALS: Vitals are noted on the nurse's note and reviewed by myself. Vital signs stable. GENERAL: Well-developed, well-nourished, white female, who is in no acute distress and resting comfortably. Patient is cooperative with the examination. HEAD: Normocephalic atraumatic. EARS: External ear normal. External auditory canals clear, tympanic membranes pearly mcmillan without erythema or effusion bilaterally. EYES: Pupils equal round and reactive to light and accommodation. Conjunctivae without injection, sclerae without icterus. Extraocular movements intact. NOSE: Patent, turbinates without inflammation or discharge. MOUTH: Mucous membranes moist. Tonsils are not enlarged. Pharynx without erythema, blood, or exudate. Uvula midline. Airway patent. NECK: Supple without nuchal rigidity. No lymphadenopathy. No thyromegaly. Cervical spine is nontender. HEART: Regular rate and rhythm without murmurs gallops or rubs. LUNGS: Clear to auscultation bilaterally without wheezes, rales or rhonchi. No retractions or accessory muscle use. ABDOMEN: Positive normal bowel sounds x 4. Soft with epigastric tenderness on palpation. There is mild right upper quadrant tenderness. No lower abdominal tenderness. No CVA tenderness. MUSCULOSKELETAL: No muscle atrophy, erythema, or edema noted. Full range of motion in all extremities. NEURO: Patient was alert and oriented to person place and time. CN II through XII grossly intact. SKIN: The skin was without rashes, erythema, edema, or bruising. Capillary refill less than 2 seconds. Course Administered Medications Discontinued Medications Al Hydrox/Mg Hydrox/Simethicone () 1 dose PO ONE ONE Stop: 09/19/18 02:31 Last Admin: 09/19/18 02:46 Dose: 1 dose Documented by: [id number] Bacitracin (Bacitracin) Confirm Administered Dose 45 appln .ROUTE .STK-MED ONE Stop: 09/19/18 07:10 Last Admin: 09/19/18 08:33 Dose: 1 appln Documented by: [id number] Bupivacaine HCl (Marcaine 0.5% Mpf) Confirm Administered Dose 30 ml .ROUTE .STK- MED ONE Stop: 09/19/18 07:10 Last Admin: 09/19/18 08:33 Dose: 20 ml Documented by: [id number] Hydromorphone HCl (Dilaudid) 0.5 mg IV Q3H PRN PRN Reason: Pain Stop: 10/03/18 05:47 Last Admin: 09/19/18 10:22 Dose: 0.5 mg Documented by: [id number] Sodium Chloride (Nss 1000ml) 1,000 mls @ 999 mls/hr IV .[id number] [facility] Stop: 09/19/18 03:30 Last Infusion: 09/19/18 04:04 Dose: 0 mls/hr Documented by: [id number] Admin: 09/19/18 02:45 Dose: 999 mls/hr Documented by: [id number] Lactated Ringer's (Lr) 1,000 mls @ 80 mls/hr IV .[id number] [facility] Stop: 10/19/18 05:59 Last Admin: 09/19/18 10:22 Dose: 80 mls/hr Documented by: [id number] Admin: 09/19/18 10:15 Dose: Not Given Documented by: [id number] Cefazolin Sodium (Ancef 1000mg) 1,000 mg in 7.5 mls @ 2.5 mls/min IV Q8H [facility] Stop: 09/21/18 05:59 Last Admin: 09/19/18 10:14 Dose: Not Given Documented by: [id number] Cefazolin Sodium (Ancef 2000mg) 2,000 mg in 15 mls @ 3.75 mls/min IV PREOP ONE Stop: 09/19/18 06:03 Last Admin: 09/19/18 10:14 Dose: Not Given Documented by: [id number] Promethazine HCl 6.25 mg/ (Sodium Chloride) 50.25 mls @ 204 mls/hr IV ONCE PRN PRN Reason: PACU Use Only-Nausea/Vomiting Stop: 09/19/18 13:41 Last Infusion: 09/19/18 09:42 Dose: 0 mls/hr Documented by: [id number] Admin: 09/19/18 09:27 Dose: 204 mls/hr Documented by: [id number] Lidocaine HCl (Xylocaine 1% (Local)) Confirm Administered Dose 20 ml .ROUTE .STK-MED ONE Stop: 09/19/18 07:10 Last Admin: 09/19/18 08:34 Dose: 20 ml Documented by: [id number] Morphine Sulfate (Morphine Sulfate) 4 mg IV NOW STA Stop: 09/19/18 02:31 Last Admin: 09/19/18 02:43 Dose: 4 mg Documented by: [id number] Ondansetron HCl (Zofran) 4 mg IV NOW STA Stop: 09/19/18 02:31 Last Admin: 09/19/18 02:43 Dose: 4 mg Documented by: [id number] Ondansetron HCl (Zofran) 4 mg IV ONCE PRN PRN Reason: PACU Use Only-Nausea/Vomiting Stop: 09/19/18 13:41 Last Admin: 09/19/18 09:01 Dose: 4 mg Documented by: [id number] Ondansetron HCl (Zofran) Confirm Administered Dose 4 mg .ROUTE .STK-MED ONE Stop: 09/19/18 09:00 Last Admin: 09/19/18 10:15 Dose: Not Given Documented by: [id number] Oxycodone/Acetaminophen (Percocet 5mg/325mg) 1 tab PO Q4H PRN PRN Reason: Pain Stop: 10/03/18 11:01 Last Admin: 09/19/18 11:49 Dose: 1 tab Documented by: [id number] Medical Decision Making Differential Diagnosis Differential diagnosis: Etiologies such as biliary colic, cholecystitis, hepatitis, pancreatitis, cardiac disease, pancreatitis, gastritis, peptic ulcer disease, appendicitis, cystitis, diverticulitis, mesenteric ischemia, inflammatory bowel disease, ileus, bowel obstruction, testicular/adnexal torsion, aortic pathology, shingles, as well as others were considered Laboratory Data Result diagrams: 09/19/18 02:32 09/19/18 02:32 Lab Results 09/19/18 09/19/18 09/19/18 Range/Units 02:32 02:32 02:32 WBC 12.02 H (4.8-10.8) K/uL RBC 4.05 L (4.2-5.4) M/uL Hgb 12.3 (12.0-16.0) g/dL Hct 35.7 L (37-47) % MCV 88.1 (80-100) fL MCH 30.4 (25-34) pg MCHC 34.5 (32-36) g/dL RDW Std Deviation 41.4 (36.4-46.3) fL RDW Coeff of Joy 12.8 (11.5-14.5) % Plt Count 321 (130-400) K/uL MPV 9.6 (7.4-10.4) fL Immature Gran % (Auto) 0.2 % Neut % (Auto) 57.5 % Lymph % (Auto) 33.5 % [place]ow % (Auto) 7.2 % Eos % (Auto) 1.1 % Baso % (Auto) 0.5 % Immature Gran # (Auto) 0.03 H (0.00-0.02) K/uL Neut # (Auto) 6.90 H (1.4-6.5) K/uL Lymph # (Auto) 4.03 H (1.2-3.4) K/uL [place] # (Auto) 0.87 H (0.11-0.59) K/uL Eos # (Auto) 0.13 (0-0.5) K/uL Baso # (Auto) 0.06 (0-0.2) K/uL PT (9.0-12.0) Seconds INR (0.9-1.1) APTT (21.0-31.0) Seconds PTT Ratio D-Dimer Cancelled Sodium 140 (136-145) mmol/L Potassium 2.8 L (3.5-5.1) mmol/L Chloride 106 (98-107) mmol/L Carbon Dioxide 25 (21-32) mmol/L Anion Gap 9.0 (3-11) BUN 11 (7-18) mg/dl Creatinine 0.90 (0.6-1.2) mg/dl Est Cr Clr Drug Dosing 103.7 ml/min Est GFR ( Amer) 94.7 Est GFR (Non-Af Amer) 81.7 BUN/Creatinine Ratio 12.0 (10-20) Glucose 105 H (70-99) mg/dl Calcium 8.8 (8.5-10.1) mg/dl Magnesium 2.0 (1.8-2.4) mg/dl Total Bilirubin 0.2 (0.2-1) mg/dl AST 13 L (15-37) U/L ALT 22 (12-78) U/L Alkaline Phosphatase 117 (45-117) U/L Troponin I < 0.015 (0-0.045) ng/ml Total Protein 8.0 (6.4-8.2) gm/dl Albumin 3.8 (3.4-5.0) gm/dl Globulin 4.2 H (2.5-4.0) gm/dl Albumin/Globulin Ratio 0.9 (0.9-2) Lipase 177 (73-393) U/L TSH 2.490 (0.300-4.500) uIu/ml Urine Color Urine Appearance (Clear) Urine pH (4.5-7.5) Ur Specific Merrill (1.000-1.030) Urine Protein (Negative) Urine Glucose (UA) (Negative) Urine Ketones (Negative) Urine Blood (Negative) Urine Nitrite (Negative) Urine Bilirubin (Negative) Urine Urobilinogen (Negative) Ur Leukocyte Esterase (Negative) Urine WBC (Auto) (0-5) /hpf Urine RBC (Auto) (0-4) /hpf U Hyaline Cast (Auto) (0-5) /lpf U Epithel Cells (Auto) (0-5) /lpf Urine Bacteria (Auto) (Negative) POC Ur Test (NEG) 09/19/18 09/19/18 09/19/18 Range/Units 03:55 03:55 05:11 WBC (4.8-10.8) K/uL RBC (4.2-5.4) M/uL Hgb (12.0-16.0) g/dL Hct (37-47) % MCV (80-100) fL MCH (25-34) pg MCHC (32-36) g/dL RDW Std Deviation (36.4-46.3) fL RDW Coeff of Joy (11.5-14.5) % Plt Count (130-400) K/uL MPV (7.4-10.4) fL Immature Gran % (Auto) % Neut % (Auto) % Lymph % (Auto) % [place] % (Auto) % Eos % (Auto) % Baso % (Auto) % Immature Gran # (Auto) (0.00-0.02) K/uL Neut # (Auto) (1.4-6.5) K/uL Lymph # (Auto) (1.2-3.4) K/uL [place] # (Auto) (0.11-0.59) K/uL Eos # (Auto) (0-0.5) K/uL Baso # (Auto) (0-0.2) K/uL PT 9.9 (9.0-12.0) Seconds INR 1.0 (0.9-1.1) APTT 27.7 (21.0-31.0) Seconds PTT Ratio 1.0 D-Dimer 800 H* Sodium (136-145) mmol/L Potassium (3.5-5.1) mmol/L Chloride (98-107) mmol/L Carbon Dioxide (21-32) mmol/L Anion Gap (3-11) BUN (7-18) mg/dl Creatinine (0.6-1.2) mg/dl Est Cr Clr Drug Dosing ml/min Est GFR ( Amer) Est GFR (Non-Af Amer) BUN/Creatinine Ratio (10-20) Glucose (70-99) mg/dl Calcium (8.5-10.1) mg/dl Magnesium (1.8-2.4) mg/dl Total Bilirubin (0.2-1) mg/dl AST (15-37) U/L ALT (12-78) U/L Alkaline Phosphatase (45-117) U/L Troponin I (0-0.045) ng/ml Total Protein (6.4-8.2) gm/dl Albumin (3.4-5.0) gm/dl Globulin (2.5-4.0) gm/dl Albumin/Globulin Ratio (0.9-2) Lipase (73-393) U/L TSH (0.300-4.500) uIu/ml Urine Color Yellow Urine Appearance Turbid A (Clear) Urine pH 8.0 H (4.5-7.5) Ur Specific Merrill 1.021 (1.000-1.030) Urine Protein Negative (Negative) Urine Glucose (UA) Negative (Negative) Urine Ketones Negative (Negative) Urine Blood Negative (Negative) Urine Nitrite Negative (Negative) Urine Bilirubin Negative (Negative) Urine Urobilinogen Negative (Negative) Ur Leukocyte Esterase Negative (Negative) Urine WBC (Auto) 1-5 (0-5) /hpf Urine RBC (Auto) 0-4 (0-4) /hpf U Hyaline Cast (Auto) 1-5 (0-5) /lpf U Epithel Cells (Auto) >30 H (0-5) /lpf Urine Bacteria (Auto) Negative (Negative) POC Ur Test NEG (NEG) Imaging Data Radiologist's Impression: US gallbladder CLINICAL HISTORY: Epigastric abdominal pain. COMPARISON STUDY: CT of the abdomen and pelvis August 07, 2016. FINDINGS: Liver is sonographically normal. There is no biliary ductal dilatation. The common bile duct measures 5 mm in caliber. The pancreas is obscured by overlying bowel gas. There are stones and sludge within the gallbladder. There is moderate gallbladder wall thickening. There is edema within the gallbladder wall. The wall measures 6 mm in thickness. Sonographic Stewart sign could not be assessed for this patient. The gallbladder is distended. There is no right hydronephrosis. Mild right renal cortical thinning is noted. IMPRESSION: 1. Cholelithiasis, gallbladder distention and moderate gallbladder wall thickening. These findings are suggestive of acute cholecystitis. 2. No biliary ductal dilatation. 3. Pancreas largely obscured on this exam. ECG Data Attestation: I personally reviewed and interpreted this ECG as follows: Additional Comments: Sinus rhythm with short TN @[address] elevation Otherwise normal ECG No previous ECGs available MDM Narrative Physical exam and history were performed. Nursing notes, EMR, and Medication List were personally reviewed. Patient appears to have epigastric abdominal discomfort for the past 2 hours. The patient is tender in the epigastric area. IV access was established and labs were obtained. The patient was hydrated with normal saline and given IV morphine, IV Zofran, and a GI cocktail. EKG does not show evidence of acute ischemia. She was sent to ultrasound for further evaluation. The patient's blood work is as above and was reviewed. She does have an elevated white blood cell count of 12,000. She does not have a significant anemia or gross electrolyte imbalance. Lipase and transaminases are not diagn ostic. Troponin is negative. TSH shows euthyroid state. Urine is negative for and infection. Ultrasound was reviewed by myself and radiology, and does appear consistent with acute cholecystitis. On reevaluation the patient feels much better after medication. She was updated on her findings, and I did discuss the case with the on-call surgeon, Dr. Canchola. Dr Canchola agreed to evaluate the patient here in the ER for further management. Please see Dr. Canchola's dictation for further patient course, plan, and disposition. The chart was completed utilizing [employer] Speech Voice Recognition Software. Grammatical errors, random word insertions, pronoun errors, and incomplete sentences are an occasional consequence of this system due to software limitations, ambient noise, and hardware issues. Any formal questions or concerns about the content, text, or information contained within the body of this dictation should be directly addressed to the provider for clarification. . Impression & Plan Acute cholecystitis Discharge Plan Visit Data *Final* Discharge Date/Time: 09/19/18 07:22 Chief Complaint: Cardiac Assessment Stated Complaint: CHEST PAIN ED Provider: Fco Caro ED Midlevel Provider: Nate Scanlon Discharge Problem: Acute cholecystitis Patient Disposition: Still a Patient Discharge Instructions Interventions: ED Discharge Assessment Last Done: 09/19/18 06:39
== END 2018-09-19 16:09 | disposition home or self-care (01) | DRG 419 ==
LOC: ED 02:04 → OR 06:39 → 3W 06:40